=== PATIENT | female | born 1975 | race Caucasian/White ===

== ENCOUNTER 2019-03-31 11:34 | Emergency (ER) | payer OTHER ==
[2019-03-31 11:52] VITALS: BP 121/75
--- NOTE | 2019-03-31 13:09 | UC ---
Eye Complaint HPI - HPI Summary HPI Summary: Pt presents with c/o of bilateral upper and lower eyelid swelling bilateral eye redness and feeling of "itching/scraping under upper eyelids. P t states that she "weed whacked" a garden bed yesterday afternoon , denies any known FB in eye but states immediately after she felt both of her eyes were getting "itchy" feeling uncomfortable and feeling swollen. Pt states she took 50 MG benadryl prior to bed, took an nik this morning, and has been applying allergy eye drops with no improvement to symptoms. Pt does not wear glasses or contacts. - History of Current Complaint Chief Complaint: UCEye Stated Complaint: BILATERAL EYE Time Seen by Provider: 03/31/19 11:59 Hx Obtained From: Patient Hx Last Menstrual Period: IUD, mirena ?: No Onset/Duration: Sudden Onset, Still Present, Worse Since - onset Timing: Constant Severity Initially: Mild Severity Currently: Moderate Pain Intensity: 4 Pain Scale Used: 0-10 Numeric Location of Injury: Other - no injury Character: Dull, Foreign Body Sensation Aggravating Factor(s): Nothing Alleviating Factor(s): Nothing Associated Signs And Symptoms: Positive: Vision Impairment Bilateral - Risk Factors Penetrating Injury Risk Factor: Negative Globe Rupture Risk Factors: Negative Acute Glaucoma Risk Factors: Eye Inflammation Optic Artery Occlusion Risk Factors: Negative - Allergies/Home Medications Allergies/Adverse Reactions: Allergies Allergy/AdvReac Type Severity Reaction Status Date / Time No Known Allergies Allergy Verified 03/31/19 11:46 Home Medications: Home Medications Ketotifen Fumarate [Allergy Eye Drops] 10 ml OP ONCE 03/31/19 [History Confirmed 03/31/19] Loratadine [Claritin] 10 mg PO DAILY 03/31/19 [History Confirmed 03/31/19] Topiramate [Topiramate ER 150 mg cap] 150 mg PO BEDTIME 03/31/19 [History Confirmed 03/31/19] diphenhydrAMINE HCl [Benadryl Allergy] 50 mg PO ONCE 03/31/19 [History Confirmed 03/31/19] PMH/Surg Hx/FS Hx/Imm Hx Previously Healthy: Yes Neurological History: Migraine - Surgical History Surgical History: Yes Surgery Procedure, Year, and Place: [facility], 2012, [facility] - Social History Occupation: Employed Full-time Lives: With Family Alcohol Use: Rare Substance Use Type: None Smoking Status (MU): Former Smoker Amount Used/How Often: 1/4 ppd Length of Time of Smoking/Using Tobacco: 20 years Have You Smoked in the Last Year: Yes - Immunization History Most Recent Tetanus Shot: 12/2010 Vaccination Up to Date: Yes Review of Systems All Other Systems Reviewed And Are Negative: Yes Constitutional: Positive: Negative Skin: Positive: Negative Eyes: Positive: Eye Redness, Other - upper an dlower eyelid swelling, inflammed conjunctivae ENT: Positive: Negative Respiratory: Positive: Negative Cardiovascular: Positive: Negative Gastrointestinal: Positive: Negative Genitourinary: Positive: Negative Motor: Positive: Negative Neurovascular: Positive: Negative Musculoskeletal: Positive: Negative Neurological: Positive: Negative Psychological: Positive: Negative Is Patient Immunocompromised?: No Physical Exam Triage Information Reviewed: Yes Appearance: Ill-Appearing Vital Signs: Initial Vital Signs Temp 99.0 F 03/31/19 11:48 Pulse 73 03/31/19 11:48 Resp 16 03/31/19 11:48 BP 121/75 03/31/19 11:48 Pulse Ox 99 03/31/19 11:48 Vital Signs Reviewed: Yes Eyes: Positive: Conjunctiva Inflamed, Other: - bilateral scleritis, upper an dlower eye lids swelling ENT Exam: Normal Dental Exam: Normal Neck exam: Normal Respiratory Exam: Normal Cardiovascular Exam: Normal Musculoskeletal Exam: Normal Neurological Exam: Normal Psychological Exam: Normal Skin Exam: Normal Eye Complaint Course/Dx - Course Course Of Treatment: The patient stated that she smelled a mint odor while "weed whacking". I discussed with the pt and with Dr. Vamsi Roper my concern about mint oil or other contaminant in eyes. Dr. Roper advised immediate evaluation by him and pt verbalized understanding and agreed to plan of care. - Differential Dx/Diagnosis Differential Diagnosis/HQI/PQRI: Conjunctivitis, Corneal Abrasion Provider Diagnosis: Allergic reaction, Scleritis, Conjunctivitis Discharge ED - Sign-Out/Discharge Documenting (check all that apply): Patient Departure All imaging exams completed and their final reports reviewed: No Studies - Discharge Plan Condition: Stable Disposition: HOME Prescriptions: predniSONE TAB* [Deltasone 10 MG TAB*] 30 mg PO DAILY #12 tab Patient Education Materials: Conjunctivitis (ED) Referrals: Omari Licona MD [Primary Care Provider] - Vamsi Roper OD [Doctor of Osteopathy] - Additional Instructions: Please go directly to DR. Roper's office now. - Billing Disposition and Condition Condition: STABLE Disposition: Home
== END 2019-03-31 12:27 | disposition home or self-care (01) ==
LOC: UCCORT 11:34
DX: T78.40XA Allergy, unspecified, initial encounter (principal); X58.XXXA Exposure to other specified factors, initial encounter; H15.003 Unspecified scleritis, bilateral; H10.9 Unspecified conjunctivitis; Z87.891 Personal history of nicotine dependence
CPT/HCPCS: 99212; G0463